=== PATIENT | male | born 1990 | race Caucasian/White ===

== ENCOUNTER 2019-10-01 00:50 | Emergency (ER) | payer BC ==
[~2019-10-01] VITALS: Ht 185.4 cm; Wt 88.6 kg
[~2019-10-01 00:50] MED LIST: LEXAPRO 10MG10 MG PO; PRILOSEC 20MG20 MG PO
[2019-10-01 01:11] LABS: HEMATOCRIT 49.1 % (42.0-52.0); HEMOGLOBIN 17.7 g/dl (13.5-18.0); MEAN CELL VOLUME 83 fl (80.0-100.0); MEAN CORPUSCULAR HEMOGLOBIN 30 pg (27.0-31.0); MEAN CORPUSCULAR HGB CONC 36 g/dl (33.0-37.0); MEAN PLATELET VOLUME 9.1 fl (7.4-10.4); PLATELET COUNT 284 K/mm3 (130-400); REDCELL DISTRIBUTION WIDTH-CV 11.9 % (11.5-14.5)
[2019-10-01 01:27] LABS: ALANINE AMINOTRANSFERASE 62 U/L (21-72); ALBUMIN 5.2 gm/dL (3.5-5.0); ALKALINE PHOSPHATASE 77 U/L (50-136); ANION GAP 16 mmol/L (7-16); AST,SGOT 33 U/L (15-37); BLOOD UREA NITROGEN 17 mg/dL (9-20); CARBON DIOXIDE 22 mmol/L (22-30); CHLORIDE 103 mmol/L (98-107); CREATININE, serum 1.05 (0.66-1.25); GLUCOSE 131 mg/dL (74-106); LIPASE 126 U/L (23-300); POTASSIUM 3.8 mmol/L (3.4-5.0); SODIUM 141 mmol/L (137-145); TOTAL PROTEIN 8.4 gm/dL (6.4-8.2)
[2019-10-01 01:28] LABS: C-REACTIVE PROTEIN < 0.5 mg/dL (0.0-0.9)
[2019-10-01 02:57] LABS: BAND 30 % (0-10); LYMPHOCYTE 1 % (20.0-51.0); NEUTROPHILS 65 % (42.0-75.2); PLATELET ESTIMATE NORMAL (NORMAL)
[2019-10-01 04:31] LABS: COLLECTION METHOD CLEAN CATCH
[2019-10-01 04:37] LABS: MUCOUS Present /lpf; PH 6 (5-8); SQUAMOUS EPITHELIAL None Seen /hpf; URINE APPEARANCE Clear; URINE BACTERIA None Seen /hpf; URINE BILIRUBIN Negative (NEGATIVE); URINE BLOOD Negative (NEGATIVE); URINE COLOR Yellow; URINE GLUCOSE Negative (NEGATIVE); URINE KETONE 2+ (NEGATIVE); URINE LEUKOCYTE ESTERASE Negative (NEGATIVE); URINE NITRATE Negative (NEGATIVE); URINE PROTEIN(semi-quant) Negative (NEGATIVE); URINE UROBILINOGEN Negative (NEGATIVE)
[2019-10-01] MEDS ORDERED: ZOFRAN ODT4 MG PO (05:04)
[2019-10-01 05:08] VITALS: TEMP 99.6
[2019-10-01] MEDS ORDERED: KLONOPIN2 MG PO (05:09)
[2019-10-01 05:12] VITALS: BP 115/64; PULSE 98
== END 2019-10-01 05:25 | disposition home or self-care (01) ==
LOC: COL.ER 00:50
PROVIDERS: Nurse Practitioner
DX: R11.10 Vomiting, unspecified (principal); R19.7 Diarrhea, unspecified; Z88.0 Allergy status to penicillin; Z88.2 Allergy status to sulfonamides
CPT/HCPCS: J1885; J2405; J7030